=== PATIENT | female | born 1960 | race Caucasian/White ===

== ENCOUNTER 2022-04-05 15:15 | Emergency (ER) | payer MEDICAID ==
[~2022-04-05] VITALS: Ht 154.9 cm; Wt 54.4 kg
--- NOTE | 2022-04-05 15:18 | NUR ---
Patient arrived via BLS for c/o mechanical fall at [facility] in [place]. Patient was jumping on rubber trampoline when kids pushed her and she fell. Patient hit her head and was alert and oriented x2 with periods of confusion. Patient was not able to answer questions when employees assisted her. [place] appeared [place] [facility]. Report received from john NARVAEZ and patient is responsive at the moment. Patient is [place] speaking. Dr. Harrison at bedside to MSE patient.
--- NOTE | 2022-04-05 15:20 | NUR ---
ER at bedside examining patient.
[2022-04-05 15:22] VITALS: BP_SYST 109
--- NOTE | 2022-04-05 16:46 | NUR ---
Pt assisted to bathroom, ambulated with steady gait. Daughter with pt in bathroom at this time
--- NOTE | 2022-04-05 16:54 | NUR ---
md lopez talking with pt
[2022-04-05] MEDS ORDERED: IBUP-1969 PO (16:55)
[2022-04-05] MEDS ORDERED: HYDROcodone/ACETAMIN 5-325 MG TAB (NORCO/ VICODIN) PO ONE (17:00)
[2022-04-05] MEDS ORDERED: IBUPROFEN 600 MG TABLET PO ONE (17:00)
[2022-04-05] MEDS ORDERED: HYDR-3917 PO (17:10)
[2022-04-05 17:23] VITALS: BP_SYST 130
--- NOTE | 2022-04-05 17:25 | NUR ---
Patient given written and verbal discharge instructions and verbalizes understanding. ER MD discussed with patient the results and treatment provided. Patient in stable condition. ID arm band removed. Rx of [place], Ibuprofen given. Patient educated on pain management and to follow up with PMD. Pain Scale . Opportunity for questions provided and answered. Medication side effect fact sheet provided.
== END 2022-04-05 17:25 | disposition home or self-care (01) ==
LOC: SED 15:15
DX: S00.83XA Contusion of other part of head, initial encounter (principal); S10.93XA Contusion of unspecified part of neck, initial encounter; E11.9 Type 2 diabetes mellitus without complications; Z79.899 Other long term (current) drug therapy; W09.8XXA Fall on or from other playground equipment, initial encounter; Y93.89 Activity, other specified; Y92.89 Other specified places as the place of occurrence of the external cause; Y99.8 Other external cause status
CPT/HCPCS: 70450-TC; 72125-TC; 76376; 99284